=== PATIENT | male | born 1995 | race Caucasian/White ===

== ENCOUNTER 2025-10-05 17:26 | Emergency (ER) | payer SELFPAY ==
[2025-10-05] VITALS (16 sets, daily range): BP systolic 104–144; BP diastolic 52–97; PULSE 69–92; RESP 16–33; TEMP 36.4–37.1; O2SAT 80–100; BMI 32.7
--- NOTE | 2025-10-05 17:25 | EKG12_ITS ---
Test Reason : CP Blood Pressure : */* mmHG Vent. Rate : 68 BPM Atrial Rate : 68 BPM P-R Int : 188 ms QRS Dur : 96 ms QT Int : 366 ms P-R-T Axes : 70 -25 55 degrees QTcB Int : 389 ms Normal sinus rhythm with sinus arrhythmia Precordial Peaked T Waves Borderline ECG Confirmed by Brandon Berry ([id number]), content editor EDGARD CULLEN ([id number]) on 10/11/2025 7:28:28 AM Referred By: Confirmed By: Brandon Berry
--- NOTE | 2025-10-05 17:38 | CT_ITS ---
EXAM: CT Abdomen and Pelvis With Intravenous Contrast CLINICAL INDICATION: ABDOMINAL PAIN, NAUSEA VOMITING TECHNIQUE: Axial computed tomography images of the abdomen and pelvis with intravenous contrast. This CT exam was performed using one or more of the following dose reduction techniques: automated exposure control, adjustment of the mA and/or kV according to patient size, and/or use of iterative reconstruction technique. CONTRAST: 100 cc Isovue 370 RADIATION DOSE: CTDIvol = 22 mGy, DLP = 10/14/2003 mGy-cm COMPARISON: No relevant prior studies available. FINDINGS: LUNG BASES: Unremarkable. No mass. No consolidation. ABDOMEN: LIVER: Hepatomegaly with fatty infiltration. GALLBLADDER AND BILE DUCTS: Unremarkable. No calcified stones. No ductal dilation. PANCREAS: Unremarkable. No mass. No ductal dilation. SPLEEN: Unremarkable. No splenomegaly. ADRENALS: Unremarkable. No mass. KIDNEYS AND URETERS: Hypodense lesion of the kidneys, likely cysts. Bilateral renal pelvic calculi, largest measuring up to 4 mm without obstruction. No stones within either kidney. No hydronephrosis. STOMACH AND BOWEL: Unremarkable. No obstruction. No mucosal thickening. PELVIS: APPENDIX: No findings to suggest acute appendicitis. BLADDER: Unremarkable. No mass. REPRODUCTIVE: Unremarkable as visualized. ABDOMEN and PELVIS: INTRAPERITONEAL SPACE: Unremarkable. No free air. No significant fluid collection. BONES/JOINTS: No acute fracture. No dislocation. SOFT TISSUES: Unremarkable. VASCULATURE: Unremarkable. No abdominal aortic aneurysm. LYMPH NODES: Unremarkable. No enlarged lymph nodes. CT/Abdomen/Pelvis W IV Cont ONLY IMPRESSION: 1. Hypodense lesion of the kidneys, likely cysts. 2. Hepatomegaly with fatty infiltration. 3. Left nephrolithiasis without hydronephrosis. 4. No obstructive uropathy. Reading Location: [id number]
--- NOTE | 2025-10-05 17:38 | CT_ITS ---
PROCEDURE: BRAIN/HEAD WITHOUT CONTRAST 10/05/2025 REASON FOR EXAM: Altered mental status TECHNIQUE: Procedure Code: CTBR Modality: CT Procedure: BRAIN/HEAD WITHOUT CONTRAST Coronal and Sagittal reconstruction series were provided. One or more dose reduction techniques were used (e.g., Automated exposure control, adjustment of the mA and/or kV according to patient size, use of iterative reconstruction technique. RADIATION DOSE SUMMARY: DLP: 829.85 mGycm COMPARISON: None available. FINDINGS: No acute hemorrhage. No acute infarct. No significant mass effect or brain herniation. The ventricular system and sulci/fissures are within normal limits of size and configuration for the patient's stated age. No extra-axial fluid collection. The basal cisterns are patent. The mastoid air cells are clear. The paranasal sinuses are predominantly clear. The calvarium appears intact. Small right parietal scalp hematoma. CT/Brain/Head without Contrast IMPRESSION: 1. No CT evidence of acute intracranial hemorrhage, infarct, or significant mas s effect. 2. Small right parietal scalp hematoma. Reading Location: [id number]
[2025-10-05 17:57] LABS: Hematocrit 50.0 % (40-54); Hemoglobin 17.1 g/dL (13.0-16.5); Immature Granulocytes Count 0.150 X10^3/uL (0.0-0.0); Mean Corp Hgb Conc 34.2 g/dL (32-36); Mean Corpuscular Volume 91.1 fL (80-94); Mean Platelet Vol. 8.5 fl (6.2-12.0); NRBC Flagged by Analyzer 0 % (0-5); POSITIVE DIFFERENTIAL YES; POSITIVE MORPHOLOGY YES; Platelet Count 546 K/mm3 (150-450); RBC Distribution Width CV 11.8 % (11.6-14.6); RBC Distribution Width SD 39.7 fl (35.1-43.9); Red Blood Count 5.49 M/mm3 (4.6-6.2); White Blood Count 24.7 K/mm3 (4.4-11.0)
[2025-10-05 17:59] LABS: Differential Indicated SCAN CRITERIA MET
--- NOTE | 2025-10-05 18:00 | RAD_ITS ---
EXAM: XR Chest, 1 View CLINICAL INDICATION: ALTERED MENTAL STATUS TECHNIQUE: Frontal view of the chest. COMPARISON: No relevant prior studies available. FINDINGS: LUNGS AND PLEURAL SPACES: Unremarkable. No consolidation. No pneumothorax. HEART: Unremarkable. No cardiomegaly. MEDIASTINUM: Unremarkable. Normal mediastinal contour. BONES/JOINTS: Unremarkable. No acute fracture. RAD/Chest 1 View (Portable) IMPRESSION: No acute cardiopulmonary process. Reading Location: [id number]
[2025-10-05] MEDS: 0.9% Normal Saline (1000mL) 1,000 ML 999 ML IV ×2 (18:20→21:05)
[2025-10-05 18:21] LABS: Troponin T High Sensitivity < 6 ng/L (<=22)
[2025-10-05 18:23] LABS: Alcohol, Blood (Medical)-Serum < 10.1 mg/dL (<=10.0)
[2025-10-05 18:40] LABS: AST(SGOT) 37 U/L (<=37); Alanine Aminotransfer ALT/SGPT 45 U/L (<=46); Albumin, Serum 5.3 g/dL (3.5-5.0); Alkaline Phosphatase 126 U/L (40-129); Anion Gap 33 (7-18); BUN 13 mg/dL (4-19); BUN/Creat Ratio 10.9 RATIO (10-20); Calcium,Total 9.6 mg/dL (7.6-11.0); Chloride 100 mmol/L (96-106); Estimated Creatinine Clearance 107.88 ml/min (50-250); Globulin 3.4 g/dL (2.2-4.2); Glucose 213 mg/dL (70-99); Lipase 37 U/L (13-75); Potassium 3.4 mmol/L (3.5-5.1)
[2025-10-05 18:50] LABS: Carbon Dioxide 6.8 mmol/L (20.0-29.0)
[2025-10-05 18:54] LABS: SITE Not entered; VBG BASE EXCESS -11 mmol/L (-1.0-3.5); VBG PO2 40 mmHg (25-40); VBG SO2 72 % (50-70); VBG TCO2 16 mmol/L (23-33)
--- NOTE | 2025-10-05 18:58 | EX.ED.DYSGE1 ---
HPI History of Present Illness Chief Complaint: Unresponsive [facility] Medical History no medical history Home Medications ?Medication ?Instructions ?Recorded ?Last Taken ?Type metoclopramide HCl 5 mg tablet 5 mg PO Q8H 4 days #12 tabs 10/06/25 Unknown Rx (Reglan) Allergy/AdvReac Type Severity Reaction Status Date / Time No Known Allergies Allergy Verified 10/05/25 17:32 Surgical History no surgical history Social History Smoking Status: Never smoker EXAM Physical Exam Const Vital Signs: 10/05/25 17:27 10/05/25 18:05 10/05/25 18:09 Temperature 98.7 F Temperature Source Axillary Pulse Rate 69 77 Respiratory Rate 20 H 18 Respiratory Effort Normal Non-Labored Respiratory Pattern Tachypnea Blood Pressure 125/84 H 126/83 H Blood Pressure Mean 97 97 Pulse Ox 100 100 Oxygen Delivery Method Room Air Room Air 10/05/25 18:09 10/05/25 18:15 10/05/25 18:30 Temperature Temperature Source Pulse Rate 77 75 86 Respiratory Rate 25 H 22 H 33 H Respiratory Effort Respiratory Pattern Blood Pressure 120/72 Blood Pressure Mean 88 Pulse Ox 98 100 80 Oxygen Delivery Method Room Air 10/05/25 18:45 10/05/25 19:00 10/05/25 19:30 Temperature 97.6 F L Temperature Source Oral Pulse Rate 86 82 89 Respiratory Rate 30 H 19 H 16 Respiratory Effort Respiratory Pattern Blood Pressure 104/77 116/97 H 120/83 H Blood Pressure Mean 87 105 95 Pulse Ox 98 100 99 Oxygen Delivery Method Room Air Room Air Room Air 10/05/25 20:00 10/05/25 20:30 10/05/25 21:00 Temperature Temperature Source Pulse Rate 86 88 88 Respiratory Rate 16 16 16 Respiratory Effort Respiratory Pattern Blood Pressure 136/81 H 136/81 H 144/86 H Blood Pressure Mean 99 99 105 Pulse Ox 99 100 100 Oxygen Delivery Method Room Air Room Air Room Air 10/05/25 21:30 10/05/25 22:00 10/05/25 22:30 Temperature Temperature Source Pulse Rate 87 92 84 Respiratory Rate 16 16 16 Respiratory Effort Respiratory Pattern Blood Pressure 119/75 119/75 124/67 H Blood Pressure Mean 89 89 86 Pulse Ox 100 99 97 Oxygen Delivery Method Room Air Room Air Room Air 10/05/25 23:00 10/05/25 23:30 10/06/25 00:00 Temperature Temperature Source Pulse Rate 90 88 87 Respiratory Rate 16 16 16 Respiratory Effort Respiratory Pattern Blood Pressure 120/69 108/52 L 104/62 Blood Pressure Mean 86 70 76 Pulse Ox 100 100 100 Oxygen Delivery Method Room Air Room Air Room Air 10/06/25 00:36 Temperature 98.1 F Temperature Source Pulse Rate 90 Respiratory Rate 16 Respiratory Effort Respiratory Pattern Blood Pressure 106/75 Blood Pressure Mean 85 Pulse Ox 97 Oxygen Delivery Method [facility] [place] Medical decision making narrative: HISTORY OF PRESENT ILLNESS: Chief complaint: Unresponsive 29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 EMS was called and noted his blood sugar was in acceptable range they sent an EKG. They noted the patient was complaining of abdominal pain and having intermittent nausea and vomiting. Upon arrival patient was altered, agitated, combative and did not provide reliable history. After initial agitation treatment and initial labs images came back patient was able to give more proper history. He denies he will use any drugs or ingest any toxic alcohols. He states he has been getting similar symptoms his whole life. He states he has not been drinking much water recently. He notes today he was drinking lots of energy drinks and felt fatigued before he eventually passed out. REVIEW OF SYSTEMS: Could not obtain or lab review of system secondary to acute of the patient's condition and altered mental status PHYSICAL EXAM: Nursing triage notes reviewed, Vital signs reviewed Constitutional: please see mdm HENT: MMM Eyes: Pupils equal round and reactive to light, Extraocular muscles intact Neck: No stridor, no JVD, full neck ROM Lungs: Clear to auscultation, No wheezing or rales. No increased work of breathing, no conversational dyspnea, no accessory muscle use, no nasal flaring. No respiratory distress noted Heart: Regular rate and rhythm, No murmurs, No rubs and No gallops, 2+ distal pulses (radial, femoral, posterior tibial) in all extremities Abdomen: Soft, there is no tenderness, rigidity, rebound or guarding, no obvious peritoneal signs, no palpable pulsatile abdominal masses, no auscultated abdominal bruit : No CVAT Extremities: No edema Neuro: No new focal neurological deficits, cranial nerves II through XII intact, 5/5 strength in all present extremities. Intact sensation to light touch in all present extremities, 2+ reflexes bilateral patella tendons. Skin: No rash or lesions noted MEDICAL DECISION MAKING: Chief Complaint: please see HPI External records reviewed: No records in [facility]. Reviewed [facility]. No past medical history noted. Patient was last seen in January 2025 for hand injury. Factors affecting care: None Social determinants of health: Denies illicit drug use History obtained from others: EMS Consults: none [facility] Narrative: The patient was initially hemodynamically stable, afebrile and nontoxic-appearing. Exam showed a diaphoretic pale altered patient who was agitated combative and not following commands Given his altered mental status and young age we tried to resuscitate the patient with 2 mg of IV Narcan. There is no appreciable change in the patient's mental status after Narcan but he did begin violently vomiting. Given the patient's agitation was initially treated with 1 mg of IV Ativan and a normal saline bolus. He is also given 4 mg IV Zofran. Patient became more combative started to threaten physical harm to nursing staff. At this time he was treated with 100 mg of IV ketamine. The IV ketamine controlled his agitation in order to get images IVs and additional workup. I considered the following differential diagnosis: ICH, metabolic acidosis, infectious encephalopathy, intra-abdominal pathology, DKA, drug intoxication, I obtained a broad lab and imaging work to further determine if the patient was suffering from a life-threatening etiology. ALL IMAGES (IF OBTAINED) HAVE BEEN PERSONALLY REVIEWED AND INTERPRETED BY MYSELF. EKG with normal sinus rhythm rate 68, left ax deviation, normal intervals, no obvious CBC with marked leukocytosis suggestive of systemic inflammation, elevated hemoglobin and platelet count suggestive of dehydration hemoconcentration VBG without significant acidemia however the patient's bicarb was significantly low at 15 consistent with a metabolic acidosis BMP without significant electrolyte disturbances, noted metabolic acidosis as well as elevated anion gap consistent with endorgan hypoperfusion. No PARVEZ LFTs show no evidence of hepatobiliary pathology. Lipase is wnl indicating no pancreatic inflammation. Serum alcohol is negative CT scan of the brain was negative for ICH I have personally reviewed the patient's chest x-ray. Chest x-ray is unremarkable for pulmonary edema, pneumothorax, pneumonia or focal cardiopulmonary abnormality. COVID/flu/RSV negative Urine tox screen positive cannabinoids otherwise Serum alcohol is negative Beta hydroxybutyrate completely negative. While it does not completely rule out euglycemic DKA makes it much less likely CK only borderline elevated no sign of rhabdomyolysis CT scan of the abdomen pelvis shows no evidence of acute surgical pathology Urinalysis shows no evidence of urinary inflammation suggestive of UTI Given the patient's profound metabolic acidosis and elevated anion gap I initially offered the patient admission. He felt reticent about being admitted to the hospital and so we agreed through shared decision making process to continue full resuscitation and repeat labs. We agreed that if the labs continue to be abnormal that he be admitted to the hospital as they resolved and he will go home and follow-up with his primary care physician. Repeat labs showed complete resolved lactic acidosis completely resolved anion gap and metabolic acidosis on BMP. Kidney function may normal. Patient had no visual issues and again denied taking any toxic alcohols. Again offered admission however patient refused. 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 Discussed healthier living habits including increased p.o. intake of water. Decrease energy drink usage. The patient and/or family, caregivers express understanding. The patient and/or family, caregivers agrees with the plan. Shared decision making: I will have a discussion with the patient and or visitors regarding risk/benefits of further testing or admission. They will be made aware of of the risk/benefits inherent in this decision they will be given the opportunity to voice understanding. Total critical care time today provided was at least 60 minutes. This excludes separately billable procedures. Critical care time (if documented) is secondary to the patient having high probability of clinically significant/life threatening deterioration in the patient's condition which required my urgent intervention. Impression: 1. Transient alteration in awareness 2. Metabolic acidosis 3. Dehydration Dispo: Discharge home This note was generated with leaselock dictation software. It may contain incorrect words, spelling, and punctuation that were not noted in review of the chart prior to signing. Lab Data Labs: Laboratory Results - last 24 hr 10/05/25 10/05/25 10/05/25 17:31 18:56 20:58 WBC 24.7 H RBC 5.49 Hgb 17.1 H Hct 50.0 MCV 91.1 MCH 31.1 MCHC 34.2 RDW Std Deviation 39.7 RDW Coeff of Ralph 11.8 Plt Count 546 H MPV 8.5 Immature Gran % (Auto) 0.600 Neut % (Auto) 70.7 H Lymph % (Auto) 22.3 Wirt % (Auto) 4.8 Eos % (Auto) 1.0 Baso % (Auto) 0.6 Absolute Neuts (auto) 17.4 H Absolute Lymphs (auto) 5.51 H Nucleated RBC % 0 Platelet Estimate SLT INC Sodium 140 Potassium 3.4 L Chloride 100 Carbon Dioxide 6.8 L* Anion Gap 33 H BUN 13 Creatinine 1.16 Estim Creat Clear Calc 107.88 Est GFR (MDRD) Non-Af 86 BUN/Creatinine Ratio 10.9 Glucose 213 H Serum Osmolality 305 H Lactic Acid 6.5 H* Cancelled Calcium 9.6 Total Bilirubin 0.49 AST 37 ALT 45 Alkaline Phosphatase 126 Total Creatine Kinase 198 H Troponin T High Sens < 6 Troponin T Hi Sens 2 Hr 14 Troponin T Hi Sens 4Hr Total Protein 8.6 H Albumin 5.3 H Globulin 3.4 Albumin/Globulin Ratio 1.6 Lipase 37 b-Hydroxybutyric mmol/L 0.1 Urine Color Yellow Urine Clarity Clear Urine pH 7.0 Ur Specific Whiteside 1.010 Urine Protein 30 H Urine Glucose (UA) 250 H Urine Ketones 5 H Urine Occult Blood 25 H Urine Nitrite Negative Urine Bilirubin Negative Urine Urobilinogen Normal Ur Leukocyte Esterase Negative Urine RBC 0 SEEN Urine WBC 0 SEEN Ur Squamous Epith Cells 0 SEEN Urine Bacteria 0 SEEN Urine Mucus 0 SEEN Salicylates < 0.5 L Urine Opiates Screen NEGATIVE U Buprenorphine Qual NEGATIVE Ur Oxycodone Screen NEGATIVE Urine Methadone Screen NEGATIVE Urine Fentanyl Screen NEGATIVE Acetaminophen < 5.0 L Ur Barbiturates Screen NEGATIVE Ur Phencyclidine Scrn NEGATIVE Ur Amphetamines Screen NEGATIVE U Benzodiazepines Scrn NEGATIVE Urine Cocaine Screen NEGATIVE U Cannabinoids Screen PRESUMPTIVE POSITIVE Ethyl Alcohol < 10.1 10/05/25 10/05/25 21:51 23:05 WBC RBC Hgb Hct MCV MCH MCHC RDW Std Deviation RDW Coeff of Ralph Plt Count MPV Immature Gran % (Auto) Neut % (Auto) Lymph % (Auto) Wirt % (Auto) Eos % (Auto) Baso % (Auto) Absolute Neuts (auto) Absolute Lymphs (auto) Nucleated RBC % Platelet Estimate Sodium 140 Potassium 4.0 Chloride 110 H Carbon Dioxide 21.5 Anion Gap 9 BUN 10 Creatinine 0.82 Estim Creat Clear Calc 152.61 Est GFR (MDRD) Non-Af 120 BUN/Creatinine Ratio 11.6 Glucose 88 Serum Osmolality Lactic Acid 1.1 Calcium 8.4 Total Bilirubin AST ALT Alkaline Phosphatase Total Creatine Kinase Troponin T High Sens Troponin T Hi Sens 2 Hr Troponin T Hi Sens 4Hr 18 Total Protein Albumin Globulin Albumin/Globulin Ratio Lipase b-Hydroxybutyric mmol/L Urine Color Urine Clarity Urine pH Ur Specific Whiteside Urine Protein Urine Glucose (UA) Urine Ketones Urine Occult Blood Urine Nitrite Urine Bilirubin Urine Urobilinogen Ur Leukocyte Esterase Urine RBC Urine WBC Ur Squamous Epith Cells Urine Bacteria Urine Mucus Salicylates Urine Opiates Screen U Buprenorphine Qual Ur Oxycodone Screen Urine Methadone Screen Urine Fentanyl Screen Acetaminophen Ur Barbiturates Screen Ur Phencyclidine Scrn Ur Amphetamines Screen U Benzodiazepines Scrn Urine Cocaine Screen U Cannabinoids Screen Ethyl Alcohol ABG Data ABG results: ABG 10/05/25 18:48 Specimen Type DAMIEN Sample Site Not entered VBG pH 7.33 VBG pO2 40 VBG HCO3 15 L VBG Total CO2 16 L VBG O2 Sat (Calc) 72 H VBG Base Excess -11 L POC Mix VBG pCO2 Pt Tmp 29.3 L O2 Delivery Device Room Air Radiography Diagnostic Testing: Clinical Impression(s) from Imaging Studies Abdomen/Pelvis CT 10/05/25 17:38 IMPRESSION: 1. Hypodense lesion of the kidneys, likely cysts. 2. Hepatomegaly with fatty infiltration. 3. Left nephrolithiasis without hydronephrosis. 4. No obstructive uropathy. Reading Location: [facility] Brain CT 10/05/25 17:38 IMPRESSION: 1. No CT evidence of acute intracranial hemorrhage, infarct, or significant mass effect. 2. Small right parietal scalp hematoma. Reading Location: [id number] Chest X-Ray 10/05/25 18:00 IMPRESSION: No acute cardiopulmonary process. Reading Location: [facility] Discharge Plan Triage Chief Complaint: Unresponsive ED Provider: Long Joseph Dx/Rx/DC Orders Clinical Impression: Acute dehydration Instructions: ED Opiate Abuse Prescriptions: New metoclopramide HCl [Reglan] 5 mg tablet 5 mg PO Q8H 4 Days Qty: 12 0RF Stand Alone Forms: ED Work / School Excuse Primary Care Provider: Care Physician,No Primary Referrals: Luke Dickinson MD [Med Staff - Active Staff, Family Practice] Activity Restrictions/Additional Instructions: Thank you for trusting us with your care today! Please drink more water. Please take Tylenol (2 pills, 650 mg), ibuprofen (2 pills, 400 mg) every 6 hours as needed for pain and fever control. Please take Reglan as needed for nausea vomiting control. Please follow with your primary care physician for further outpatient evaluation and management. Print Language: Guamanian Disposition Disposition: Home, Self Care
[2025-10-05 19:07] LABS: Mucous, Urine 0 SEEN /hpf (<or=2+); Red Blood Cells-Urine 0 SEEN /hpf (0-5); Squamous Epithelial Cells - UA 0 SEEN /hpf (0-5)
[2025-10-05 19:08] LABS: Color, Urine Yellow (Yellow); Glucose, Dipstick 250 mg/dl (Normal); Ketone-Dipstick 5 mg/dl (Negative); Leukocyte Esterase-Dipstick Negative /ul (Negative); Nitrite-Dipstick Negative (Negative); Occult Blood-Urine 25 /ul (Negative); Protein-Dipstick 30 mg/dl (Negative); Specific Gravity, Urine 1.010 (1.002-1.030); Urine Bilirubin Dipstick Negative (Negative)
[2025-10-05 19:22] LABS: BETA-HYDROXYBUTYRATE 0.1 mmol/L (0.0-0.3); CPK Total, Creatine Kinase 198 U/L (24-195)
[2025-10-05 19:26] LABS: Barbiturate Urine NEGATIVE (< 200 ng/mL); Benzodiazepine Urine NEGATIVE (< 200 ng/mL); PCP Urine NEGATIVE (< 25 ng/mL); THC Urine PRESUMPTIVE POSITIVE (< 50 ng/mL)
[2025-10-05 20:07] LABS: Acetaminophen (Tylenol) Level < 5.0 ug/mL (8.0-19.0); Salicylate < 0.5 mg/dL (2.8-20.0); Troponin T High Sens 2 HR 14 ng/L (<=22)
[2025-10-05 21:25] LABS: Osmolality, Serum 305 mOsm/KG (275-295)
[2025-10-05 22:17] LABS: Troponin T High Sens 4 HR 18 ng/L (<=22)
[2025-10-05 23:05] LABS: Reflex Lactate? Y
[2025-10-06] VITALS: BP 104/62; PULSE 87; RESP 16; O2SAT 100
[2025-10-06 00:10] LABS: Anion Gap 9 (7-18); BUN 10 mg/dL (4-19); BUN/Creat Ratio 11.6 RATIO (10-20); Calcium,Total 8.4 mg/dL (7.6-11.0); Carbon Dioxide 21.5 mmol/L (20.0-29.0); Chloride 110 mmol/L (96-106); Estimated Creatinine Clearance 152.61 ml/min (50-250); Glucose 88 mg/dL (70-99); Potassium 4.0 mmol/L (3.5-5.1)
[2025-10-06 00:36] VITALS: BP 106/75; PULSE 90; RESP 16; TEMP 36.7; O2SAT 97
== END 2025-10-06 01:00 | disposition home or self-care (01) ==
PROVIDERS: Emergency Provider Emergency Medicine; Visit Provider Emergency Medicine
DX: R41.82 Altered mental status, unspecified (principal); E86.0 Dehydration; R10.9 Unspecified abdominal pain; E87.20 Acidosis, unspecified; R11.2 Nausea with vomiting, unspecified; R55 Syncope and collapse
CPT/HCPCS: 70450; 71045; 74177; 80048; 80053; 80143; 80179; 80307; 81001; 82010; 82077; 82550; 82803; 83605; 83690; 83930; 84484; 85025; 87631; 93005; 96361; 96374; 96375; 99285; Q9967; A4216; J2405